=== PATIENT | female | born 1980 | race Caucasian/White ===

== ENCOUNTER 2021-08-03 18:20 | Emergency (ER) | payer OTHER ==
[2021-08-03] MEDS ORDERED: BACLOFEN 10MG T10 MG PO (21:41)
[2021-08-03] MEDS ORDERED: NAPROXEN500 MG PO (21:41)
== END 2021-08-03 21:55 | disposition home or self-care (01) ==
LOC: FER 18:20
DX: S46.912A Strain of unspecified muscle, fascia and tendon at shoulder and upper arm level, left arm, initial encounter (principal); Z88.5 Allergy status to narcotic agent; V49.40XA Driver injured in collision with unspecified motor vehicles in traffic accident, initial encounter
CPT/HCPCS: 71101; 72125; 73030; 96372; J1100; J1885